=== PATIENT | male | born 1945 | race Caucasian/White ===

== ENCOUNTER 2018-09-05 14:35 | Inpatient (IN) ==
--- NOTE | 2018-09-05 14:51 | Emergency Department Note ---
Disposition Clinical Impression: TIA resulting from procedure Disposition: Still a Patient General Adult HPI - General Stated complaint: possible stroke Time Seen by Provider: 09/05/18 14:43 - Related Data Home Medications Medication Instructions Recorded Confirmed Atorvastatin Calcium [Lipitor] 20 mg PO DAILY 09/05/18 09/05/18 Diclofenac Sodium (24 HR) 100 mg PO DAILY 09/05/18 09/05/18 [Voltaren XR] Famotidine [Heartburn Prevention] 20 mg PO DAILY 09/05/18 09/05/18 Metoprolol XL (24 HR) Succ [Toprol 25 mg PO DAILY 09/05/18 09/05/18 Xl] Nitroglycerin [Nitrostat] 0.4 mg SL DAILY PRN 09/05/18 09/05/18 Paroxetine [Paxil] 20 mg PO DAILY 09/05/18 09/05/18 Trazodone HCl 100 mg PO HS 09/05/18 09/05/18 Allergies Allergy/AdvReac Type Severity Reaction Status Date / Time No Known Allergies Allergy Verified 09/05/18 09:42 Past Medical History - Past Medical History Medical history: Reports: COPD, hypertension Surgical history: Reports: appendectomy Psychiatric history: Reports: anxiety, depression - Social History Smoking Status: Current every day smoker Alcohol use: Reports: none Drug use: Reports: none Attestation Statement - Attestation Attestation: I examined this patient and my medical decision-making was reviewed with the Resident Physician. I agree with the documented findings, disposition and treatment plan as described except to the extent set forth below. 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 He presents confused. They were concerend for a stroke and he was transported to us immeadiately which then elicited a stroke alert to be called. STROKE workup and then dispositoin but likely admission to medicine
--- NOTE | 2018-09-05 14:52 | Emergency Department Note ---
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 The patient states that he needed to use the restroom and when he got up he was noticeably week. The nurse states that at 1410 these events occurred where he had left facial lower droop, slurring of the speech with drooling and a noticeable left grasp weakness. No history of th is in the past. The interventional cardiologists later evaluated the patient and he had spontaneous resolution of his symptoms at 1423. He presents here in the emergency department with a slight left facial nasolabial flattening and droop with reports of slurred speech return. Review of his medications, no anticoagulants. The son is in the room states this is new. He does admit that he has had a vocal changes with the past several weeks but none of the slurring. No history of CVA. His current NIH score is 2. Onset of Symptoms Date: 09/05/18 Onset of Symptoms Time: 14:10 Symptom Onset Unknown: No Timing confirmed by: caregiver (Nurse) Location: speech, left face, left arm History of same: No - Related Data Home Medications: Home Medications Medication Instructions Recorded Confirmed Aspirin [Adult Aspirin] 81 mg PO DAILY 09/05/18 09/05/18 Atorvastatin Calcium [Lipitor] 20 mg PO DAILY 09/05/18 09/05/18 Diclofenac Sodium [Voltaren] 1 appl TP DAILY 09/05/18 09/05/18 Diclofenac Sodium [Voltaren] 50 mg PO Q8HR 09/05/18 09/05/18 Famotidine [Heartburn Prevention] 20 mg PO BID 09/05/18 09/05/18 Metoprolol XL (24 HR) Succ [Toprol 25 mg PO DAILY 09/05/18 09/05/18 Xl] Multivits,Ca,Min/Iron/FA/Lycop 1 tab PO DAILY 09/05/18 09/05/18 [Centrum Men's Tablet] Nitroglycerin [Nitrostat] 0.4 mg SL DAILY PRN 09/05/18 09/05/18 Paroxetine [Paxil] 20 mg PO DAILY 09/05/18 09/05/18 Trazodone HCl 100 mg PO HS 09/05/18 09/05/18 Allergies/Adverse Reactions: Allergies Allergy/AdvReac Type Severity Reaction Status Date / Time No Known Allergies Allergy Verified 09/05/18 09:42 All systems ED: reviewed and negative except as stated. Review of Systems: As Per HPI Constitutional: Reports: weakness. Denies: fever, chills Eyes: Denies: vision change ENT ED: Denies: congestion Cardiovascular: Denies: chest pain Respiratory: Denies: dyspnea Gastrointestinal: Denies: abdominal pain, nausea, vomiting Musculoskeletal: Denies: back pain, neck pain Neurological: Reports: weakness. Denies: headache, numbness, paresthesias Psychiatric: Reports: anxiety Past Medical History - Past Medical History Attestation: Yes The following information was validated with the patient. Source: patient Medical history: Reports: COPD, coronary artery disease, hypertension Surgical history: Reports: appendectomy Psychiatric history: Reports: anxiety, depression - Social History Smoking Status: Current every day smoker Alcohol use: Reports: occasionally Drug use: Reports: none Physical Exam - General Limitations: no limitations General appearance: alert, in no apparent distress, anxious - Head Head exam: atraumatic, normocephalic, normal inspection, other (Slight lower left facial droop) - Eye Eye exam: Present: normal appearance, PERRL, EOMI - ENT ENT exam: normal exam, normal oropharynx, mucous membranes moist - Expanded ENT Exam External ear exam: Present: normal external inspection Teeth exam: Present: other (EDENTULOUS) Throat exam: Present: normal inspection - Neck Neck exam: Present: normal inspection, full ROM, trachea midline. Absent: tenderness - Chest Chest inspection: Present: normal inspection, symmetric chest wall rise - Respiratory Respiratory exam: Present: normal lung sounds bilaterally - Cardiovascular Cardiovascular exam: Present: regular rate, normal rhythm, normal heart sounds - Abdominal Exam Abdominal exam: Present: soft, Non-Tender, normal bowel sounds. Absent: tenderness, distention, guarding, rebound, rigidity - Extremities Exam Extremities exam: Present: normal inspection, full ROM, normal capillary refill. Absent: tenderness, pedal edema - Back Exam Back exam: Present: normal inspection, full ROM. Absent: tenderness - Neurological Exam Neurological exam: Present: alert, oriented X3, CN II-XII intact - Expanded Neurological Exam Patient oriented to: Present: person, place, time Cranial nerves: EOM function (II, III, IV, ): Normal, facial sensation (V): Normal, facial palsy (VII): Abnormal Left (slight flattening), gag reflex (IX): Normal, spinal accessory function (XI): Normal, tongue deviation (XII): Normal Motor strength - LUE: 5/5 Motor strength - RUE: 5/5 Motor strength - LLE: 5/5 Motor strength - RLE: 5/5 Upper motor neuron exam: jai neglect: Absent bilaterally, pronator drift: Absent bilaterally Sensory exam upper extremity: light touch: Normal Sensory exam lower extremity: light touch: Normal Coma Scale Eye Opening: Spontaneous Coma Scale Motor Response: Obeys Commands Coma Scale Verbal Response: Oriented Coma Scale Total: 15 - Psychiatric Psychiatric exam: Present: normal affect, anxious - Skin Skin exam: Present: warm, dry, intact, normal color Course Course Narrative: Patient presents with facial droop slurred speech reported weakness that has now resolved. Stroke workup initiated - Reevaluation(s) Reevaluation #1: CT scan did not reveal intracranial hemorrhage. Reevaluation #2: Patient has become very agitated. Ativan and Benadryl ordered. The hospitalist is at bedside evaluate the patient. He is acting slightly more confused. There is no obvious focal deficits. - Consultations Consultation #1: Spoke with the [facility] tele-stroke neurologist Dr. Spann who agrees he likely had a small stroke but now has almost near resolution of his symptoms. Does not recommend tPA at this time. Spoke with the patient's family members and are agreeable to stay here at [facility] for further evaluation of possible TIA versus CVA. Time: 15:05 Consultation #2: Spoke with on-call hospitalist liss Easley to admit for TIA after procedure. No further orders at this time Time: 15:23 Vital Signs Temperature 97.7 F 09/05/18 14:42 Pulse Rate 73 09/05/18 14:42 Respiratory Rate 20 09/05/18 14:42 Blood Pressure 171/112 09/05/18 14:42 O2 Sat by Pulse Oximetry 98 09/05/18 14:42 Temperature 97.7 F 09/05/18 14:42 Pulse Rate 71 09/05/18 15:17 Respiratory Rate 17 09/05/18 15:32 Blood Pressure 199/111 09/05/18 15:32 O2 Sat by Pulse Oximetry 98 09/05/18 14:42 Oxygen Delivery Oxygen Delivery Room Air Neuro Symptoms/Deficit - MDM Narrative Medical decision making narrative: Patient was discussed with my attending physician who agrees with ED management and final disposition. They independently evaluated the patient. Please refer to their attestation to this encounter for additional information. This note was generated by [employer] voice recognition software and as a result grammatical or spelling errors may occur using this program. - Medical Records Medical records reviewed: Yes I reviewed the patient's medical records. - Lab Data Lab results reviewed: Yes I reviewed the patient's lab results. Result diagrams: 09/05/18 14:09 09/05/18 14:09 Lab Results 09/05/18 09/05/18 09/05/18 Range/Units 14:09 14:09 14:09 WBC 8.1 (4.3-11.1) K/mcL RBC 4.49 (4.19-5.50) M/mcL Hgb 14.3 (12.9-16.9) g/dL Hct 43.9 (37.5-50.1) % MCV 97.8 (83.0-100.0) fL MCH 31.8 (28.0-33.3) pg MCHC 32.6 (31.6-35.5) g/dL RDW 13.4 (11.5-14.5) % Plt Count 129 L (140-400) K/mcL MPV 12.8 H (9.4-12.4) fL PT 11.6 (9.4-12.1) Seconds INR 1.0 APTT 33.5 (26.0-36.0) Seconds Sodium 140 (136-145) mEq/L Potassium 3.8 (3.5-5.1) mEq/L Chloride 107 (98-107) mEq/L Carbon Dioxide 24 (23-29) mEq/L BUN 23 (8-23) mg/dL Creatinine 0.99 (0.70-1.30) mg/dL Est GFR ( Amer) > 60 (> 60) Est GFR (Non-Af Amer) > 60 (> 60) BUN/Creatinine Ratio 23 (6-26) Glucose 178 H (70-105) mg/dL Calculated Osmolality 298 (280-300) Calcium 9.4 (8.6-10.3) mg/dL Troponin I < 0.03 (< 0.04) ng/mL Urine Color (Yellow) Urine Clarity (Clear) Urine pH (5.0-8.0) pH Units Ur Specific [place] (1.010-1.025) Urine Protein (Neg-Trace) mg/dL Urine Glucose (UA) (Normal) mg/dL Urine Ketones (Negative) mg/dL Urine Blood (Negative) Urine Nitrite (Negative) Urine Bilirubin (Negative) Urine Urobilinogen (Normal) mg/dL Ur Leukocyte Esterase (Negative) Ur Culture Indicated? (NO) Urine Opiates Screen (Xyetni=894) ng/mL Ur Barbiturates Screen (Uibnfe=926) ng/mL Ur Phencyclidine Scrn (Cutoff=25) ng/mL Ur Amphetamines Screen (Eayqxp=3743) ng/mL U Benzodiazepines Scrn (Nppcrr=465) ng/mL Urine Cocaine Screen (Cutoff= 300) ng/mL U Marijuana (THC) Screen (Cutoff = 50) ng/mL Ur Drug Screen Interp 09/05/18 09/05/18 Range/Units 15:54 15:54 WBC (4.3-11.1) K/mcL RBC (4.19-5.50) M/mcL Hgb (12.9-16.9) g/dL Hct (37.5-50.1) % MCV (83.0-100.0) fL MCH (28.0-33.3) pg MCHC (31.6-35.5) g/dL RDW (11.5-14.5) % Plt Count (140-400) K/mcL MPV (9.4-12.4) fL PT (9.4-12.1) Seconds INR APTT (26.0-36.0) Seconds Sodium (136-145) mEq/L Potassium (3.5-5.1) mEq/L Chloride (98-107) mEq/L Carbon Dioxide (23-29) mEq/L BUN (8-23) mg/dL Creatinine (0.70-1.30) mg/dL Est GFR ( Amer) (> 60) Est GFR (Non-Af Amer) (> 60) BUN/Creatinine Ratio (6-26) Glucose (70-105) mg/dL Calculated Osmolality (280-300) Calcium (8.6-10.3) mg/dL Troponin I (< 0.04) ng/mL Urine Color Yellow (Yellow) Urine Clarity Clear (Clear) Urine pH 7.0 (5.0-8.0) pH Units Ur Specific [place] 1.008 L (1.010-1.025) Urine Protein Negative (Neg-Trace) mg/dL Urine Glucose (UA) 100 H (Normal) mg/dL Urine Ketones Negative (Negative) mg/dL Urine Blood Negative (Negative) Urine Nitrite Negative (Negative) Urine Bilirubin Negative (Negative) Urine Urobilinogen Normal (Normal) mg/dL Ur Leukocyte Esterase Negative (Negative) Ur Culture Indicated? NO (NO) Urine Opiates Screen Negative (Sslqqn=732) ng/mL Ur Barbiturates Screen Negative (Siwpsh=815) ng/mL Ur Phencyclidine Scrn Negative (Cutoff=25) ng/mL Ur Amphetamines Screen Negative (Pqfyco=9100) ng/mL U Benzodiazepines Scrn Positive H (Olhnfc=234) ng/mL Urine Cocaine Screen Negative (Cutoff= 300) ng/mL U Marijuana (THC) Screen Negative (Cutoff = 50) ng/mL Ur Drug Screen Interp See Below - Radiology Data Radiology results reviewed: Yes I reviewed the patient's radiology results. Head CT 09/05/18 14:43 IMPRESSION: No acute intracranial abnormality. Slight to mild cerebral atrophy appropriate for age. [id number] amount of chronic ischemic change also age-appropriate. D/ / Femi Lorenz MD / Femi Lorenz MD Interpreting Provider: Femi Lorenz MD Stroke Scale - Level of Consciousness LOC: Alert - LOC Questions LOC Questions: Answers both correctly - LOC Commands LOC Commands: Performs both correctly - Best Gaze Best Gaze: Normal - Visual Visual: No visual loss - Facial Palsy Facial Palsy: Minor asymmetry on smiling, flattened nasolabial fold - Motor Arms Motor Arm-Left: No drift for 10 seconds Motor Arm-Right: No drift for 10 seconds - Motor Legs Motor Leg-Left: No drift for 5 seconds Motor Leg-Right: No drift for 5 seconds - Limb Ataxia Limb Ataxia: Absent of affected limb too weak to perform exam - Sensory Sensory: Normal - Best Language Best Language: No aphasia - Dysarthria Dysarthria: Mild, slurs some words - Extinction and Inattention Extinction and Inattention: Normal - NIHSS Total Score NIHSS Total Score: 2 TPA Checklist - Eligibilty for IV tPA 1. LKW equal to or less than 4.5 hours be before treatment: Yes 2. Clinical diagnosis of ischemic stroke causing deficit: Yes 3. Age 18 years or older: Yes - Contraindications 4. Evidence of intracranial hemorrhage on pretreatment CT: No 5. Presentation suggests subarachnoid hem, even if CT normal: No 6. CT shows multilobar infarction: No 7. Known neoplasm, arteriovenous malformation, or aneurysm: No 8. Significant head trauma (w/ LOC) or CVA in last 3 months: No 9. BP elevated (systolic > 185 or diastolic > 110): No 10. Abnormal Blood Glucose (<50 or >400mg/dl): No 11. Active internal bleeding [PM.TPA15]: No 12. Known bleeding risk (including; not limited to 13-15): No 13. Heparin/argatroban/bivalirudin w/in 48hrs & PTT > normal: No 14. Platelet count less than 100,000/MM3: No 15. Current or recent use of anticoagualants (see protocol): No - Warnings/Precautions Considerations 16. Prior ischemic stroke within last 3 months: No 17. Recent history of intracranial hemorrhage: No 18. : No 19. Current/recent use Effient (7 days) or Brilinta (5 days): No 20. Arterial puncture at non compressible site or LP >7days: No 21. Major surgery or serious trauma in last 14 days: No 22. GI or urinary tract hemorrhage in last 21 days: No 23. NH involving left anterior myocardium in last 3 months: No 24. Suspected or known infective endocarditis/pericarditis: No - LKW: 3-4.5 hrs Add. Warnings/Precautions 21. oral anticoag other than warfarin regardles of last dose: No Patient/family understanding: The patient/family members have been counseled and understood the risk, benefit, and alternatives of treatment.
[2018-09-05 15:21] LABS: Hematocrit 43.9 % (37.5-50.1); Hemoglobin 14.3 g/dL (12.9-16.9); Mean Corpuscular HGB Conc 32.6 g/dL (31.6-35.5); Mean Corpuscular Hemoglobin 31.8 pg (28.0-33.3); Mean Corpuscular Volume 97.8 fL (83.0-100.0); Mean Platelet Volume 12.8 fL (9.4-12.4); Platelet Count 129 K/mcL (140-400); Red Blood Count 4.49 M/mcL (4.19-5.50); Red Cell Distribution Width 13.4 % (11.5-14.5)
[2018-09-05 15:29] LABS: Prothrombin Time 11.6 Seconds (9.4-12.1)
[2018-09-05 15:32] LABS: Activated Partial Thrombo Time 33.5 Seconds (26.0-36.0)
[2018-09-05 15:40] LABS: Troponin I < 0.03 ng/mL (< 0.04)
[2018-09-05] MEDS ORDERED: Naloxone 0.4 MG/ML INJ IVP PRN (15:44)
[2018-09-05] MEDS ORDERED: *HR* LORazepam 2 MG/ML VIAL IVP ONE ×2 (15:47→15:51)
[2018-09-05] MEDS ORDERED: Aspirin 325 MG TABLET PO ONE (15:48)
[2018-09-05] MEDS ORDERED: *HR* LORazepam 2 MG/ML VIAL ONE (15:49)
--- NOTE | 2018-09-05 15:52 | Internal Med History&Physical ---
Date of Encounter: 09/05/18 Time of Encounter: 15:51 Internal Medicine - H&P: HPI Chief complaint: Neuro symptoms Admitted From: Home Plans for Post Hospital Care: Home History of present illness: Mr. 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 Patient is unable to provide any history and history is obtained from family members at the bedside She was said to have "for an outpatient heart catheter this morning, and immediate post catheter was said to have noted to have left facial droop, slurred speech with drooling and left upper extremity weakness. There was an apparent resolution after being evaluated by the plant operator/shift supervisor at 1423. At the time of evaluation in the ER the patient had similar symptoms. Family denies p rior history of same. 2. Patient's is a daily smoker, occasional drinker, no illicit drug use. At the time of presentation to the ER the patient was able to admit to the ER team that he had some vocal cord changes. No slurring of speech. Patient went to head CAT scan and after that became very combative requiring 2 doses of Ativan and became even more combative requiring Haldol, Geodone and 4 point restraint. Workup at this time was unremarkable. family reports patient sometimes have "forgetfulness and early dementia"., they also reported "anger issues, but he was never physical". Current agitation said to have started when he requested to be discharged home At my time of review, he has no facial droop and he is moving all his extremities spontaneously. However, he is unable to follow commands and is very confused His blood pressure also noted to be 207/119, said to have been elevated immediate post-cath and continues to worsen We will assume full code status and place on observation for TIA, HTN urgency and delirium at this time. Past Med Surg Social Fam HX - Past Medical History Medical history: COPD, coronary artery disease, hypertension Additional medical history: joint disorder. rotator cuff tear. Tobacco abuse Psychiatric history: anxiety, depression - Past Surgical History Surgical History: appendectomy Additional surgical history: Heart Cath - Social History Smoking Status: Current every day smoker Alcohol use: occasionally Drug use: none Internal Medicine - H&P: Meds Aspirin [Adult Aspirin] 81 mg PO DAILY 09/05/18 [History] Atorvastatin Calcium [Lipitor] 20 mg PO DAILY 09/05/18 [History] Diclofenac Sodium [Voltaren] 1 appl TP DAILY 09/05/18 [History] Diclofenac Sodium [Voltaren] 50 mg PO Q8HR 09/05/18 [History] Famotidine [Heartburn Prevention] 20 mg PO BID 09/05/18 [History] Metoprolol XL (24 HR) Succ [Toprol Xl] 25 mg PO DAILY 09/05/18 [History] Multivits,Ca,Min/Iron/FA/Lycop [Centrum Men's Tablet] 1 tab PO DAILY 09/05/18 [History] Nitroglycerin [Nitrostat] 0.4 mg SL DAILY PRN 09/05/18 [History] Paroxetine [Paxil] 20 mg PO DAILY 09/05/18 [History] Trazodone HCl 100 mg PO HS 09/05/18 [History] Allergy/AdvReac Type Severity Reaction Status Date / Time No Known Allergies Allergy Verified 09/05/18 09:42 ROS unobtainable: due to mental status All Systems PM: A 10-system review of systems was performed and is negative for pertinent findin gs except as documented above in the HPI. - Constitutional Vitals: Temp Pulse Resp BP Pulse Ox 97.7 F 71 17 199/111 98 09/05/18 14:42 09/05/18 15:17 09/05/18 15:32 09/05/18 15:32 09/05/18 14:42 Exam: VSS Gen: Extremely agitated and combative PEREZ: moist oral mucosa, not cynaotic, not clinically pale, pupils 2mm, reactive and equal Neck: Normal inspection Chest: No chest wall tenderness, equal chest movement bilaterally Resp: CTAB, no added sounds Heart: S1, S2 RRR, no m/g/r Abdomen: soft, non-tender Extremities: No pedal edema Neuro: Alert, awake, disoriented, not following commands, thrashing in bed Skin: no rash Psych: Extreme agitation Internal Med - H&P Results - Labs CBC & Chem 7: 09/05/18 14:09 09/05/18 14:09 Labs: Short CBC 09/05/18 Range/Units 14:09 WBC 8.1 (4.3-11.1) K/mcL Hgb 14.3 (12.9-16.9) g/dL Hct 43.9 (37.5-50.1) % Plt Count 129 L (140-400) K/mcL Cardiac Enzymes 09/05/18 Range/Units 14:09 Troponin I < 0.03 (< 0.04) ng/mL - Impressions ITS Impressions Head CT 09/05/18 14:43 IMPRESSION: No acute intracranial abnormality. Slight to mild cerebral atrophy appropriate for age. [id number] amount of chronic ischemic change also age-appropriate. D/ / Femi Lorenz MD / Femi Lorenz MD Interpreting Provider: Femi Lorenz MD - Assessment and plan (1) TIA (transient ischemic attack) Current Visit: Yes Status: Acute Assessment and plan: Suspected Patient with witnessed Left facial droop. slurred speech and L arm weakness immediate post-cath said to have resolved prior to presentation in ER at 1423 However, recurred on presentation Apart from confusion and being combative, he has no focal deficits at my time of review ASA po, lipitor po, lipid panel a.m and A1c a.m brain MRI requested, as well as ECHO and carotid USS neurology eval continue neurochecks (2) HLD (hyperlipidemia) Current Visit: Yes Status: Chronic Assessment and plan: continue lipitor Qualifiers: Hyperlipidemia type: unspecified Qualified Code(s): E78.5 - Hyperlipidemia, unspecified (3) Tobacco abuse Current Visit: Yes Status: Chronic Assessment and plan: NRT prn (4) Status post left heart catheterization Current Visit: Yes Status: Acute Assessment and plan: [facility] report noted, no indication for cardiology eval at this time (5) Delirium Current Visit: Yes Status: Acute Assessment and plan: Patient is very combative and fighting and kicking staff in the ER At my time of review, he had received ativan and benadryl His blood pressure was very elevated and he was completely confused and not following command According to ER staff, he had been very pleasant after his head CT and communicating with staff Patient eventually required 4 point restraints According to the RN, he seemed to have been worse after receiving Ativan Recommended more antipsychotic-ER gave Geodeon Per family, he is very temperamental but not physical especially when he gets mad-he is on paroxetine and she reports complaince Utox is unremarkable -BDZP(given in ER), UA is unremarkable, alcohol level negative Rpt head imaging pending (6) Hypertensive urgency Current Visit: Yes Status: Acute Assessment and plan: Patient is on toprol at home, will resume, allowing for permissive HTN at this time IV labetalol prn SBP >180, DBP >100 Will consider hydralazine prn Continue to monitor - Time Spent With Patient Total time spent is greater than 50% in coordination of care (as documented) at patient's floor/unit and/or counseling patient:
[2018-09-05 16:05] LABS: Bilirubin,Urine Negative (Negative); Blood,Urine Negative (Negative); Clarity,Urine Clear (Clear); Color,Urine Yellow (Yellow); Glucose,Urine (UA) 100 mg/dL (Normal); Ketones,Urine Negative (Negative); Leukocyte Esterase,Urine Negative (Negative); Nitrite,Urine Negative (Negative); Protein,Urine Negative (Neg-Trace); Specific Gravity,Urine 1.008 (1.010-1.025); Urobilinogen,Urine Normal (Normal)
[2018-09-05] MEDS ORDERED: Haloperidol Lactate 5 MG/ML VIAL IVP ONE (16:05)
[2018-09-05] MEDS ORDERED: *HR* Labetalol 20 MG/4 ML SYRINGE IVP ONE (16:06)
[2018-09-05] MEDS ORDERED: Haloperidol Lactate 5 MG/ML VIAL ONE (16:09)
[2018-09-05 16:29] LABS: BUN/Creatinine Ratio 23 (6-26); Blood Urea Nitrogen 23 mg/dL (8-23); Calcium 9.4 mg/dL (8.6-10.3); Carbon Dioxide 24 mEq/L (23-29); Chloride 107 mEq/L (98-107); Glucose 178 mg/dL (70-105); Osmolality,Calculated 298 (280-300); Potassium 3.8 mEq/L (3.5-5.1); Sodium 140 mEq/L (136-145); eGFR For Non-African Americans > 60 (> 60)
[2018-09-05] MEDS ORDERED: Ziprasidone injection 20 MG/ML VIAL IM ONE ×2 (16:35)
[2018-09-05 16:40] LABS: Amphetamine Screen,Urine Negative ng/mL (Cutoff=1000); Barbiturate Screen,Urine Negative ng/mL (Cutoff=200); Benzodiazepines Screen,Urine Positive ng/mL (Cutoff=200); Cannabinoid Screen,Urine Negative ng/mL (Cutoff = 50); Cocaine Screen,Urine Negative ng/mL (Cutoff= 300); Opiate Screen,Urine Negative ng/mL (Cutoff=300); Phencyclidine Screen,Urine Negative ng/mL (Cutoff=25)
[2018-09-05] MEDS ORDERED: *HR* Labetalol 20 MG/4 ML SYRINGE IVP PRN (16:58)
[2018-09-05 17:44] LABS: Ethanol < 10 mg/dL (Less than 10)
[2018-09-05] MEDS ORDERED: *HR* Midazolam HCl 2 MG/2 ML VIAL IVP ONE (17:54)
[2018-09-05] MEDS ORDERED: Dexmedetomidine HCl 400 MCG/100 ML MLS IVC ONE (19:25)
[2018-09-05] MEDS ORDERED: Thiamine (B-1) 100 MG, Folic Acid 1 MG, MVI, adult with vitamin K 10 ML in 0.9 % Sodi... IVPB SCH (19:30)
[2018-09-05] MEDS: Dexmedetomidine HCl 400 MCG/100 ML MLS IVC SCH (19:41)
--- NOTE | 2018-09-05 21:21 | Event Note ---
Date of Encounter: 09/06/18 Time of Encounter: 21:00 Patient requiring additional sedation due to continued combative behavior, and pulling at lines. Precedex ordered as well as restraints. Patient currently having echocardiogram done, additional sedation with Versed drip ordered to be used if required. Patient also had elevated blood pressures, with diastolic above 130. Nitro drip started to help slowly bring these pressures down. We will monitor closely. Ordered stat chest x-ray and ABG to evaluate worsening breath sounds and increased oxygen demand. ABG within normal limits, chest x-ray showed no lobar pneumonia or pulmonary acute congestive heart failure. Patient's O2 saturations maintaining with oxymask. Continuing to monitor.
[2018-09-05] MEDS: Nitroglycerin 25 MG/250 ML INFUS..BTL IVC SCH (23:08)
[2018-09-06] MEDS: Dexmedetomidine HCl 400 MCG/100 ML MLS IVC SCH (00:33)
[2018-09-06 01:24] LABS: ABG Base Excess 1 mEq/L (-2 to 3); ABG HCO3 28 mEq/L (21-27); ABG Oxygen Saturation 98 % (95-98); ABG PCO2 57 mmHg (35-45); ABG PO2 108 mmHg (85-104); ABG TCO2 30 mEq/L (20-26)
[2018-09-06 03:44] LABS: Hematocrit 44.5 % (37.5-50.1); Hemoglobin 14.6 g/dL (12.9-16.9); Mean Corpuscular HGB Conc 32.8 g/dL (31.6-35.5); Mean Corpuscular Hemoglobin 32.1 pg (28.0-33.3); Mean Corpuscular Volume 97.8 fL (83.0-100.0); Mean Platelet Volume 13.1 fL (9.4-12.4); Platelet Count 113 K/mcL (140-400); Red Blood Count 4.55 M/mcL (4.19-5.50); Red Cell Distribution Width 13.1 % (11.5-14.5)
[2018-09-06 04:05] LABS: BUN/Creatinine Ratio 16 (6-26); Blood Urea Nitrogen 16 mg/dL (8-23); Calcium 9.5 mg/dL (8.6-10.3); Carbon Dioxide 28 mEq/L (23-29); Chloride 109 mEq/L (98-107); Chol/HDL Ratio 2.9 (0-4.9); Cholesterol 143 mg/dL (< 200); Glucose 108 mg/dL (70-105); HDL Cholesterol 49 mg/dL (40-59); LDL Cholesterol,Calculated 81 mg/dL (0-99); Osmolality,Calculated 300 (280-300); Potassium 4.5 mEq/L (3.5-5.1); Sodium 144 mEq/L (136-145); Triglycerides 64 mg/dL (< 150); eGFR For Non-African Americans > 60 (> 60)
[2018-09-06] MEDS ORDERED: Metoprolol XL (24 HR) Succ 25 MG TAB.ER.24H PO SCH (09:00)
[2018-09-06] MEDS: Aspirin 81 MG TAB.CHEW PO SCH (09:06)
[2018-09-06 09:23] LABS: Estimated Average Glucose 111 mg/dl; Hemoglobin A1C 5.5 %
[2018-09-06] MEDS ORDERED: Ipratropium/Albuterol Neb 3 ML IH PRN (10:38)
[2018-09-06] MEDS: GuaiFENesin Liq 200 MG/10 ML UDC PO SCH ×3 (11:17→23:45)
--- NOTE | 2018-09-06 13:43 | Neurology - Consult Note ---
Addendum entered and electronically signed by Vijay Reynoso MD 09/06/18 17:07: Patient seen and examined, in the presence of Dr. Nick Robert and i agree with history taking, physical examination, assessment and plan. [facility] 73 [facility] man who developed transient confusion, facial droop and left sided weakness 45 minutes after cardiac cath procedure, lasting only few minutes in duration, followed by agitation and combativeness, totally resolved, Negative MRI of brain of acute infarct. Nonfocal neurological examination at present time. Will recommend carotid artery duplex study. Continue medical and supportive care. WIll sign off and will re-evaluate patient at your request. Original Note: Date of Encounter: 09/06/18 Time of Encounter: 13:42 Assessment and Plan (1) TIA (transient ischemic attack) Current Visit: Yes Status: Acute - Patient presented with left-sided facial droop, slurred speech, left arm weakness after cardiac catheterization - Patients symptoms had resolved prior to presentation to the ER - Symptoms recurred; patient became confused and combative, required sedation and restraints - Per event note on 09/05: Patient has been requiring additional sedation due to combative behavior including pulling at lines. Precedex was ordered. - MRI was performed on 09/05, and it demonstrated severely motion degraded study with no infarct identified - Echocardiogram demonstrated: Ejection fraction 65-70%, mild concentric LVH, indeterminant diastolic dysfunction, mild tricuspid regurgitation Plan: - Continue ASA, Lipitor - Continue sedation - Continue neurochecks - Will order carotid doppler U/S History of Present Illness HPI: Ottoniel Garcia is a 73 year old male with a PMH of tobacco use, hypertension who presented to the ICU from the catheter lab with neurologic symptoms post catheterization. Patient had reported that he needed to use the restroom, and that when he got up, he was noticeably weak. Patient then was noticed to have left-sided facial droop, slurred speech with drooling, and left grasp weakness. There was resolution after being evaluated by the field crop farming supervisor. In the ER, patient had similar symptoms. Patient went for a head CT, and became very combative. Patient required 2 doses of Ativan, Haldol, Geodon, and 4 point res traints. Family member reported a history of forgetfulness and early dementia. Upon arrival to the ED, vital signs were significant for an elevated blood pressure at 171/112. MRI was performed on 09/05, and it demonstrated severely motion degraded study with no infarct identified. Per event note on 09/05: Patient has been requiring additional sedation due to combative behavior including pulling at lines. Patient was seen and examined at bedside this afternoon; patient is alert and oriented 3, and says that he is feeling much better. He states that he no longer feels any weakness on the left side of his body. He no longer has any slurred speech or facial droop. He currently denies having headache, numbness, paresthesias, tingling, weakness, confusion, agitation, or visual disturbances. He has no complaints at this time. Past Med Surg Social Fam HX - Past Medical History Medical history: COPD, coronary artery disease, hypertension Additional medical history: joint disorder. rotator cuff tear. Tobacco abuse Psychiatric history: anxiety, depression - Past Surgical History Surgical History: appendectomy Additional surgical history: Heart Cath - Social History Smoking Status: Current every day smoker Alcohol use: occasionally Drug use: none Medications and Allergies Aspirin [Adult Aspirin] 81 mg PO DAILY 09/05/18 [History] Atorvastatin Calcium [Lipitor] 20 mg PO DAILY 09/05/18 [History] Diclofenac Sodium [Voltaren] 1 appl TP DAILY 09/05/18 [History] Diclofenac Sodium [Voltaren] 50 mg PO Q8HR 09/05/18 [History] Famotidine [Heartburn Prevention] 20 mg PO BID 09/05/18 [History] Metoprolol XL (24 HR) Succ [Toprol Xl] 25 mg PO DAILY 09/05/18 [History] Multivits,Ca,Min/Iron/FA/Lycop [Centrum Men's Tablet] 1 tab PO DAILY 09/05/18 [History] Nitroglycerin [Nitrostat] 0.4 mg SL DAILY PRN 09/05/18 [History] Paroxetine [Paxil] 20 mg PO DAILY 09/05/18 [History] Trazodone HCl 100 mg PO HS 09/05/18 [History] Allergy/AdvReac Type Severity Reaction Status Date / Time No Known Allergies Allergy Verified 09/05/18 09:42 All Systems: The remainder of the systems were reviewed and are negative - Constitutional Constitutional ROS IM: as per HPI, no fever(s), no lethargy, no weakness - Musculoskeletal Musculoskeletal ROS IM: as per HPI, no muscle weakness, no myalgias, no numbness, no tingling - Neurological Neurological ROS: as per HPI, no abnormal gait, no dizziness, no focal weakness, no loss of vision, no numbness, no sensory deficit, no syncope, no tingling, no tremor(s), no weakness Physical Examination - Vital Signs Vital Signs: Initial Vital Signs Temp Pulse Resp BP Pulse Ox 97.7 F 73 20 171/112 98 09/05/18 14:42 09/05/18 14:42 09/05/18 14:42 09/05/18 14:42 09/05/18 14:42 - Constitutional General appearance: comfortable - Neurologic Sensorimotor examination: intact Detailed motor examination: grossly full strength in all extremities Motor examination - right side: 5/5: deltoids, biceps, triceps, wrist flexion, wrist extension, ingredient handler, toe extension (EHL), plantarflexion Motor examination - left side: 5/5: deltoids, biceps, triceps, wrist flexion, wrist extension, ingredient handler, toe extension (EHL), plantarflexion Detailed sensory examination: intact, light touch Reflex and gait examination: intact Reflexes: Brachioradialis: 2+, Patella: 2+ Mental Status Examination: awake, alert, oriented to person, oriented to place, oriented to time, follows commands appropriately, answers questions appropriately Cranial nerve examination: PERRL, EOMI, visual lindquist intact Results - Laboratory Findings CBC and BMP: 09/06/18 03:12 09/06/18 03:12 Abnormal lab findings: Abnormal lab results Plt Count 113 K/mcL (140-400) L 09/06/18 03:12 MPV 13.1 fL (9.4-12.4) H 09/06/18 03:12 ABG pH 7.30 pH Units (7.32-7.45) L 09/06/18 01:20 ABG pCO2 57 mmHg (35-45) H 09/06/18 01:20 ABG pO2 108 mmHg (85-104) H 09/06/18 01:20 ABG HCO3 28 mEq/L (21-27) H 09/06/18 01:20 ABG Total CO2 30 mEq/L (20-26) H 09/06/18 01:20 Chloride 109 mEq/L (98-107) H 09/06/18 03:12 Glucose 108 mg/dL (70-105) H 09/06/18 03:12 POC Glucose 112 mg/dL (70-99) H 09/05/18 23:18 Ur Specific [place] 1.008 (1.010-1.025) L 09/05/18 15:54 Urine Glucose (UA) 100 mg/dL (Normal) H 09/05/18 15:54 U Benzodiazepines Scrn Positive ng/mL ([id number]) H 09/05/18 15:54 Consult Discharge Plan - Plan Referrals: Candie Celestin, [employer] MANAGER [Primary Care Provider] -
[2018-09-06] MEDS: Ipratropium/Albuterol Neb 3 ML IH SCH ×2 (15:20→21:27)
--- NOTE | 2018-09-06 15:50 | Internal Med Progress Note ---
Hospitalist Progress Note - Encounter Date of Encounter: 09/06/18 Time of Encounter: 09:00 - Subjective Interval History: Patient feels fine. Mild cough, nonproductive. No fever. Vitals are stable. No neuro deficit identified or report this morning. - Exam Vitals: Temp Pulse Resp BP Pulse Ox 98.4 F 70 20 136/91 97 09/06/18 12:00 09/06/18 11:00 09/06/18 15:21 09/06/18 11:00 09/06/18 15:21 Exam: VSS Gen: AO 3, in no acute distress PEREZ: moist oral mucosa, not cynaotic, not clinically pale, pupils 2mm, reactive and equal Neck: Normal inspection Chest: No chest wall tenderness, equal chest movement bilaterally Resp: CTAB, scattered wheezes bilaterally Heart: S1, S2 RRR, no m/g/r Abdomen: soft, non-tender Extremities: No pedal edema Neuro: Alert, awake, oriented 3, no focal deficit Skin: no rash - Assessment and Plan (1) TIA (transient ischemic attack) Current Visit: Yes Status: Acute Assessment and Plan: Patient has slurred speech and facial drop, symptoms resolved completely now. MRI brain negative. Consider TIA - Continue cardiac monitoring to rule out occult A. fib - Echo unremarkable - Duplex carotid pending - Continue close monitor mental status and neuro status as patient has episode of confusion and and dentition last night. - Continue aspirin and Lipitor - Neurology consult appreciated, further recommendation will be followed (2) HLD (hyperlipidemia) Current Visit: Yes Status: Chronic Assessment and Plan: continue lipitor (3) Tobacco abuse Current Visit: Yes Status: Chronic Assessment and Plan: NRT prn (4) Status post left heart catheterization Current Visit: Yes Status: Acute Assessment and Plan: [facility] report noted, no indication for cardiology eval at this time. Patient denies chest pain. Continue aspirin, beta ray, and statin for CAD (5) Delirium Current Visit: Yes Status: Acute Assessment and Plan: Etiology undetermined. Patient is not a heavy drinker, he drink alcohol only socially. Less likely alcohol withdraw. - Continue closely monitor patient. MRI brain negative - Probably due to acute disease, expect improvement after underlying disease was treated. - Neurology consult appreciated, further recommendation will follow (6) Hypertensive urgency Current Visit: Yes Status: Acute Assessment and Plan: BP is stable now. Continue home medications (7) Acute bronchitis Current Visit: Yes Status: Acute Assessment and Plan: Chest x-ray suggested acute bronchitis, no signs of pneumonia - Place patient on cough syrup, and DuoNeb treatment - Respiratory viral panel - Supportive treatment with oxygen DVT Prophylaxis: Heparin subcutaneously - Time Spent with Patient Total time spent is greater than 50% in coordination of care (as documented) at patient's floor/unit and/or counseling patient: 25 - 35 minutes Plan of Care Discussed with: family Internal Medicine: Result - Labs CBC & Chem 7: 09/06/18 03:12 09/06/18 03:12 Labs: Short CBC 09/05/18 09/06/18 Range/Units 14:09 03:12 WBC 8.1 9.2 (4.3-11.1) K/mcL Hgb 14.3 14.6 (12.9-16.9) g/dL Hct 43.9 44.5 (37.5-50.1) % Plt Count 129 L 113 L (140-400) K/mcL BMP 09/05/18 09/06/18 14:09 03:12 Sodium 140 144 Potassium 3.8 4.5 Chloride 107 109 H Carbon Dioxide 24 28 BUN 23 16 Creatinine 0.99 0.98 Glucose 178 H 108 H Calcium 9.4 9.5 Cardiac Enzymes 09/05/18 Range/Units 14:09 Troponin I < 0.03 (< 0.04) ng/mL Urine 09/05/18 Range/Units 15:54 Urine Color Yellow (Yellow) Urine Clarity Clear (Clear) Urine pH 7.0 (5.0-8.0) pH Units Ur Specific [place] 1.008 L (1.010-1.025) Urine Protein Negative (Neg-Trace) mg/dL Urine Glucose (UA) 100 H (Normal) mg/dL - ABG Interpretation ABG results: ABG ABG pH 7.30 pH Units (7.32-7.45) L 09/06/18 01:20 ABG pCO2 57 mmHg (35-45) H 09/06/18 01:20 ABG pO2 108 mmHg (85-104) H 09/06/18 01:20 ABG O2 Saturation 98 % (95-98) 09/06/18 01:20 PT/INR, D-dimer PT 11.6 Seconds (9.4-12.1) 09/05/18 14:09 - Impressions Impressions Echocardiogram 09/05/18 15:47 Impressions: LVEF 65-70%. Normal LV chamber size and systolic function. Mild concentric left ventricular hypertrophy. Indeterminate diastolic function. Normal right ventricular structure and function. Mild tricuspid regurgitation. Unable to estimate RVSP due to lack of Doppler study and IVC visualization. Non-diagnostic of PFO with agitated saline contrast. Left Ventricular Wall Motion: Rest Echo Findings All wall segments showed normal motion. Findings: Study Quality * Technically sub-optimal due to clinical status and combative patient. ECG Findings * Normal sinus rhythm. Left Ventricle * LVEF 65-70%. * Normal LV chamber size and systolic function. * Mild concentric left ventricular hypertrophy. * Indeterminate diastolic function. No PW doppler study. Right Ventricle * Normal right ventricular structure and function. Left Atrium * Normal left atrial size. Right Atrium * Normal right atrial size. Interatrial Septum * Non-diagnostic of PFO with agitated saline contrast. Aortic Valve * Trileaflet aortic valve. * Normal aortic valve structure. No CW/PW doppler study. Mitral Valve * Normal mitral valve structure. * Trace mitral regurgitation. No CW/PW doppler study. Tricuspid Valve * Normal tricuspid valve structure. * Mild tricuspid regurgitation. * Unable to estimate RVSP due to lack of TR jet. No CW/PW doppler study. Pulmonic Valve * Pulmonic valve is not well visualized. * Trace pulmonic regurgitation. Aorta * Normally sized aortic root. Pericardium * The pericardium appears normal. IVC * The IVC is not well evaluated. Brain MRI 09/05/18 15:49 IMPRESSION: Severely motion degraded study. No infarct identified. D/ / Marlon Motta MD / Marlon Motta MD Interpreting Provider: Marlon Motta MD Chest X-Ray 09/06/18 01:07 IMPRESSION: 1. The significant lordotic projection accentuates the mediastinal and hilar structures. 2. Mild perihilar findings which could represent mild bronchitis or perihilar edema. There is no lobar pneumonia or acute congestive heart failure. D/ / 09/06/2018 07:22:00 Rojelio Valle MD / Bailey Chadwick Interpreting Provider: Rojelio Valle MD Consult Discharge Plan - Plan Referrals: Candie Celestin, RUBBER AND PLASTICS WORKER [Primary Care Provider] - (2) HLD (hyperlipidemia) Qualifiers: Hyperlipidemia type: unspecified Qualified Code(s): E78.5 - Hyperlipidemia, unspecified
[2018-09-06] MEDS: *HR* Heparin 5,000 UNIT/ML VIAL SQ SCH (16:45)
[2018-09-06] MEDS ORDERED: Acetaminophen 325 MG TABLET PO PRN (20:33)
[2018-09-06] MEDS ORDERED: traZODone 50 MG TABLET PO SCH (21:00)
[2018-09-06] MEDS: Nitroglycerin 25 MG/250 ML INFUS..BTL IVC SCH (22:32)
[2018-09-07] MEDS: Ipratropium/Albuterol Neb 3 ML IH SCH ×2 (03:51→09:53)
[2018-09-07 04:36] LABS: Basophils # 0.1 K/mcL (0.0-0.2); Basophils % 1.1 %; Eosinophils # 0.1 K/mcL (0.0-0.6); Eosinophils % 1.4 %; Hematocrit 40.5 % (37.5-50.1); Hemoglobin 13.6 g/dL (12.9-16.9); Immature Granulocytes % 0.3 % (0-4); Lymphocytes # 2.1 K/mcL (0.6-4.6); Lymphocytes % 26.8 %; Mean Corpuscular HGB Conc 33.6 g/dL (31.6-35.5); Mean Corpuscular Volume 95.3 fL (83.0-100.0); Mean Platelet Volume 13.2 fL (9.4-12.4); Monocytes # 0.8 K/mcL (0.0-1.3); Monocytes % 9.4 %; Neutrophils # 4.9 K/mcL (1.6-8.9); Platelet Count 117 K/mcL (140-400); Red Blood Count 4.25 M/mcL (4.19-5.50); Red Cell Distribution Width 13.1 % (11.5-14.5)
[2018-09-07 04:43] LABS: BUN/Creatinine Ratio 22 (6-26); Blood Urea Nitrogen 25 mg/dL (8-23); Calcium 9.2 mg/dL (8.6-10.3); Carbon Dioxide 26 mEq/L (23-29); Chloride 106 mEq/L (98-107); Glucose 82 mg/dL (70-105); Osmolality,Calculated 293 (280-300); Potassium 3.4 mEq/L (3.5-5.1); Sodium 140 mEq/L (136-145); eGFR For Non-African Americans > 60 (> 60)
[2018-09-07 05:22] VITALS: BP 144/65
[2018-09-07] MEDS: GuaiFENesin Liq 200 MG/10 ML UDC PO SCH ×2 (06:32→11:55)
[2018-09-07] MEDS: *HR* Heparin 5,000 UNIT/ML VIAL SQ SCH (06:32)
[2018-09-07] MEDS ORDERED: Metoprolol XL (24 HR) Succ 25 MG TAB.ER.24H PO SCH (09:00)
[2018-09-07] MEDS: Aspirin 81 MG TAB.CHEW PO SCH (09:12)
--- NOTE | 2018-09-07 10:07 | Discharge Summary ---
- NOTES TO OUTPATIENT PROVIDER Notes to Outpatient Provider: 1. F/U with PCP as outpatient. Orders not resulted at time of discharge: Pending orders 09/06/18 15:57 Respiratory Infection Panel [MOLMIC] Stat Date of Encounter: 09/07/18 Time of Encounter: 09:00 - Discharge Diagnosis (1) TIA (transient ischemic attack) Priority: Primary Status: Acute (2) HLD (hyperlipidemia) Priority: Secondary Status: Chronic Qualifiers: Hyperlipidemia type: unspecified Qualified Code(s): E78.5 - Hyperlipidemia, unspecified (3) Tobacco abuse Priority: Secondary Status: Chronic (4) Status post left heart catheterization Priority: Secondary Status: Acute (5) Delirium Priority: Primary Status: Acute (6) Hypertensive urgency Priority: Primary Status: Acute (7) Acute bronchitis Priority: Primary Status: Acute Qualifiers: Qualified Code(s): J20.9 - Acute bronchitis, unspecified (8) COPD (chronic obstructive pulmonary disease) Priority: Secondary Status: Acute Qualifiers: Qualified Code(s): J44.9 - Chronic obstructive pulmonary disease, unspecified Hospital course: Mr. Garcia is a 73 year old male presented to ER for facial drop and slurred s peech. Symptoms resolved quickly. MRI brain has been done, negative for infarct. Considered TIA. Patient has delirium and agitation on the first night of admission. He was placed on sedation and monitored in ICU. Patient has chest x-ray shows acute bronchitis. Patient's condition improved after treatment. Cardiac monitoring, echo, and duplex carotid unremarkable. Neurology consult saw patient, recommend continue aspirin and atorvastatin. Patient feels fine today, no overnight event, will discharge patient home. I saw and examined the patient. No difficulty breathing. Mild cough. Vitals are stable. Walk around in room without difficulty. On exam there is no wheezing any more. Will DC patient home. Patient has a history of COPD, will perform home oxygen qualification test prior to discharge. Discharge discussed with: patient - Time Spent with Patient Total time spent providing and/or coordinating discharge services: 25 minutes Less than 30 minutes - Discharge Medications Prescriptions: GuaiFENesin Liq [Robitussin Liq] 200 mg PO Q6HR 7 Days #200 ml Home Medications: Aspirin [Adult Aspirin] 81 mg PO DAILY 09/05/18 [History] Atorvastatin Calcium [Lipitor] 20 mg PO DAILY 09/05/18 [History] Diclofenac Sodium [Voltaren] 1 appl TP DAILY 09/05/18 [History] Diclofenac Sodium [Voltaren] 50 mg PO Q8HR 09/05/18 [History] Famotidine [Heartburn Prevention] 20 mg PO BID 09/05/18 [History] Metoprolol XL (24 HR) Succ [Toprol Xl] 25 mg PO DAILY 09/05/18 [History] Multivits,Ca,Min/Iron/FA/Lycop [Centrum Men's Tablet] 1 tab PO DAILY 09/05/18 [History] Nitroglycerin [Nitrostat] 0.4 mg SL DAILY PRN 09/05/18 [History] Paroxetine [Paxil] 20 mg PO DAILY 09/05/18 [History] Trazodone HCl 100 mg PO HS 09/05/18 [History] Albuterol Sulfate [Albuterol Inhaler] 1 puff IH Q4H PRN #1 bottle 09/07/18 [Rx] GuaiFENesin Liq [Robitussin Liq] 200 mg PO Q6HR 7 Days #200 ml 09/07/18 [Rx] Allergies/Adverse Reactions: Allergy/AdvReac Type Severity Reaction Status Date / Time No Known Allergies Allergy Verified 09/05/18 09:42 Date of admission: 09/06/18 13:03 Primary care physician: Candie Celestin CNP Consults: 09/05/18 19:22 Consult to [employer] [CONS] Routine Reason for SW Consult: Alcoholism 09/06/18 10:33 Consult to Neurology [CONS] Routine Consulting Provider: Neurology [facility] Reason for Consult: TIA vs CVA Call Completed: Yes Discharging clinician: Carmen Keita Anticipated date of discharge: 09/07/18 - Constitutional Vitals: Temp Pulse Resp BP Pulse Ox 97.8 F 71 18 144/65 92 09/07/18 07:46 09/07/18 04:00 09/07/18 09:53 09/07/18 04:00 09/07/18 09:53 Exam: Pt is AAO x 3, in NAD HEENT: NC/AT, PERRL Neck: Supple, no JVD, no LAD Lungs: CTA b/l Heart: S1S2, RRR Abd: Soft, nontender, BS present Ext: ROM wnl, no pedal edema Neuro: No focal deficit - Patient Status Disposition: Home, Self-Care Condition: Good Overall status at discharge: patient is back to baseline - Discharge Instructions Follow Up With: Candie Celestin CNP [Primary Care Provider] - Forms: ED Satisfaction Letter - Diet and Activity Activity: increase activity as tolerated Diet: low fat, low cholesterol, low salt diet
== END 2018-09-07 12:17 | disposition home or self-care (01) | DRG 69 ==
LOC: EMEROOARM 14:35 → 3BNU 14:35 → ICNU 18:08 → 2ANU 09-07 07:53
PROVIDERS: ADMIT Hospitalist; ATTEND Hospitalist

== ENCOUNTER 2019-08-15 21:53 | Inpatient (IN) ==
[2019-08-15 23:16] LABS: Bilirubin,Urine Negative (Negative); Blood,Urine Trace (Negative); Clarity,Urine Cloudy (Clear); Color,Urine Yellow (Yellow); Glucose,Urine (UA) Normal (Normal); Ketones,Urine Negative (Negative); Leukocyte Esterase,Urine Small (Negative); Nitrite,Urine Positive (Negative); PH,Urine 7.5 pH Units (5.0-8.0); Protein,Urine 30 mg/dL (Neg-Trace); Specific Gravity,Urine 1.018 (1.010-1.025); Urobilinogen,Urine Normal (Normal)
[2019-08-15 23:18] LABS: Bacteria,Urine Many per hpf (None-Few); Hyaline Casts,Urine Moderate per lpf (None-Few); RBC,Urine 0-3 per hpf (0-3); Squamous Epithelial Cell,Urine Moderate per lpf (None-Few); WBC,Urine TNTC per hpf (0-3)
[2019-08-15 23:29] LABS: Amphetamine Screen,Urine Negative ng/mL (Cutoff=1000); Barbiturate Screen,Urine Negative ng/mL (Cutoff=200); Benzodiazepines Screen,Urine Negative ng/mL (Cutoff=200); Cannabinoid Screen,Urine Positive ng/mL (Cutoff = 50); Cocaine Screen,Urine Negative ng/mL (Cutoff= 300); Opiate Screen,Urine Negative ng/mL (Cutoff=300); Phencyclidine Screen,Urine Negative ng/mL (Cutoff=25)
[2019-08-15 23:31] LABS: Hematocrit 30.9 % (37.5-50.1); Hemoglobin 10.5 g/dL (12.9-16.9); Immature Platelets 8.2 % (1.1-6.1); Mean Corpuscular Hemoglobin 33.5 pg (28.0-33.3); Mean Corpuscular Volume 98.7 fL (83.0-100.0); Mean Platelet Volume 11.7 fL (9.4-12.4); Red Blood Count 3.13 M/mcL (4.19-5.50); White Blood Count 18.8 K/mcL (4.3-11.1)
[2019-08-15] MEDS ORDERED: cefTRIAXone 1,000 MG in Water for inj. (sterile) 10 ML IVP ONE (23:37)
[2019-08-15] MEDS ORDERED: 0.9 % Sodium Chloride 1,000 ML IVC ONE (23:37)
[2019-08-15 23:40] LABS: INR 1.1; Prothrombin Time 12.8 Seconds (9.4-12.1)
[2019-08-15 23:43] LABS: Activated Partial Thrombo Time 27.7 Seconds (26.0-36.0)
[2019-08-15 23:54] LABS: Blood Urea Nitrogen 14 mg/dL (8-23); Calcium 8.8 mg/dL (8.6-10.3); Carbon Dioxide 25 mEq/L (23-29); Chloride 104 mEq/L (98-107); Glucose 93 mg/dL (70-105); Magnesium 1.7 mg/dL (1.6-2.6); Osmolality,Calculated 278 (280-300); Sodium 134 mEq/L (136-145)
[2019-08-15 23:59] LABS: BUN/Creatinine Ratio 16 (6-26); Troponin I 0.07 ng/mL (< 0.04); eGFR For African Americans > 60 (> 60); eGFR For Non-African Americans > 60 (> 60)
[2019-08-16] MEDS ORDERED: 0.9 % Sodium Chloride 1,000 ML IVC ONE (00:01)
[2019-08-16] MEDS ORDERED: 0.9 % Sodium Chloride 1,000 ML IVC SCH (00:30)
[2019-08-16] MEDS: levoFLOXacin 750 MG/150 ML 750 MG/150 ML BAG IVPB SCH ×2 (00:49→23:44)
[2019-08-16 01:39] LABS: Alanine Aminotransferase 26 Units/L (7-52); Albumin 3.1 g/dL (3.5-5.7); Albumin/Globulin Ratio 1.2 (1.1-2.2); Alkaline Phosphatase 110 Units/L (34-104); Aspartate Amino Transferase 17 Units/L (13-39); BUN/Creatinine Ratio 15 (6-26); Bilirubin,Total 0.4 mg/dL (0.3-1.0); Blood Urea Nitrogen 14 mg/dL (8-23); Calcium 8.3 mg/dL (8.6-10.3); Carbon Dioxide 23 mEq/L (23-29); Chloride 106 mEq/L (98-107); Chol/HDL Ratio 3.7 (0-4.9); Cholesterol 96 mg/dL (< 200); Globulin 2.5 g/dL (2.4-3.5); Glucose 91 mg/dL (70-105); HDL Cholesterol 26 mg/dL (40-59); LDL Cholesterol,Calculated 55 mg/dL (0-99); Osmolality,Calculated 280 (280-300); Sodium 135 mEq/L (136-145); Total Protein 5.6 g/dL (6.4-8.9); Triglycerides 75 mg/dL (< 150); Troponin I 0.05 ng/mL (< 0.04); eGFR For African Americans > 60 (> 60); eGFR For Non-African Americans > 60 (> 60)
[2019-08-16 01:48] LABS: INR 1.2; Prothrombin Time 13.4 Seconds (9.4-12.1)
[2019-08-16] MEDS ORDERED: Aspirin 325 MG TABLET PO ONE (01:49)
[2019-08-16] MEDS ORDERED: Ipratropium/Albuterol Neb 3 ML IH PRN (05:58)
[2019-08-16] MEDS ORDERED: Naloxone 0.4 MG/ML INJ IVP PRN (08:27)
[2019-08-16] MEDS ORDERED: Nitroglycerin 0.4 MG TAB.SUBL SL PRN (08:33)
[2019-08-16] MEDS: Aspirin Enteric Coated 81 MG Tablet PO SCH (09:48)
[2019-08-16] MEDS: Famotidine 20 MG TABLET PO SCH ×2 (09:48→21:40)
[2019-08-16] MEDS: Metoprolol XL (24 HR) Succ 25 MG TAB.ER.24H PO SCH ×2 (09:49→21:40)
[2019-08-16 11:07] LABS: % Iron Saturation 22 % (20-55); Iron 48 mcg/dL (65-175); Transferrin 154 mg/dL (203-362)
[2019-08-16 11:20] LABS: Immature Reticulocyte % 27.9 % (11.0-38.0); Retculocyte # 0.06 M/mcL (0.05-0.10); Reticulocyte % 1.8 % (1.6-2.8)
[2019-08-16 11:25] LABS: Ferritin 646 ng/mL (20-250)
[2019-08-16 11:30] LABS: Folate 10.8 ng/mL (3.0-16.0)
[2019-08-16 11:31] LABS: Vitamin B12 > 1500 pg/mL (250-1100)
[2019-08-16] MEDS ORDERED: Aspirin 81 MG TAB.CHEW PO STA ×2 (12:08→12:35)
[2019-08-16 12:20] LABS: Estimated Average Glucose 134 mg/dl
[2019-08-16 13:20] LABS: Triiodothyronine (T3) Free 2.63 pg/mL (2.50-3.90)
[2019-08-16] MEDS ORDERED: Isovue-370 500 ML BOTTLE IVP ONE (17:09)
[2019-08-16] MEDS ORDERED: traZODone 50 MG TABLET PO SCH (21:00)
[2019-08-16] MEDS ORDERED: Melatonin 3 MG TABLET PO SCH (21:00)
[2019-08-17 04:31] LABS: Hematocrit 30.2 % (37.5-50.1); Hemoglobin 10.3 g/dL (12.9-16.9); Mean Corpuscular HGB Conc 34.1 g/dL (31.6-35.5); Mean Corpuscular Hemoglobin 33.2 pg (28.0-33.3); Mean Corpuscular Volume 97.4 fL (83.0-100.0); Mean Platelet Volume 11.8 fL (9.4-12.4); Monocytes # 1.6 K/mcL (0.0-1.3); Platelet Count 256 K/mcL (140-400); Red Cell Distribution Width 12.2 % (11.5-14.5); White Blood Count 13.3 K/mcL (4.3-11.1)
[2019-08-17 04:35] LABS: INR 1.2; Prothrombin Time 13.9 Seconds (9.4-12.1)
[2019-08-17 04:48] LABS: Alanine Aminotransferase 21 Units/L (7-52); Albumin 2.9 g/dL (3.5-5.7); Albumin/Globulin Ratio 1.2 (1.1-2.2); Alkaline Phosphatase 108 Units/L (34-104); Aspartate Amino Transferase 17 Units/L (13-39); BUN/Creatinine Ratio 12 (6-26); Bilirubin,Total 0.3 mg/dL (0.3-1.0); Blood Urea Nitrogen 12 mg/dL (8-23); Calcium 8.3 mg/dL (8.6-10.3); Carbon Dioxide 25 mEq/L (23-29); Chloride 107 mEq/L (98-107); Chol/HDL Ratio 3.6 (0-4.9); Cholesterol 94 mg/dL (< 200); Globulin 2.4 g/dL (2.4-3.5); Glucose 84 mg/dL (70-105); HDL Cholesterol 26 mg/dL (40-59); LDL Cholesterol,Calculated 55 mg/dL (0-99); Magnesium 1.9 mg/dL (1.6-2.6); Osmolality,Calculated 285 (280-300); Phosphorous 3.6 mg/dL (2.7-4.5); Potassium 4.1 mEq/L (3.5-5.1); Sodium 138 mEq/L (136-145); Total Protein 5.3 g/dL (6.4-8.9); Triglycerides 66 mg/dL (< 150); eGFR For African Americans > 60 (> 60); eGFR For Non-African Americans > 60 (> 60)
[2019-08-17 05:36] LABS: Anisocytosis 1+ (Not Present); Lymphocytes # 1.1 K/mcL (0.6-4.6); Neutrophils # 10.6 K/mcL (1.6-8.9); Platelet Estimate Normal (Normal); Reactive Lymphocytes Present (Not Present)
[2019-08-17] MEDS ORDERED: cefTRIAXone 1,000 MG in Water for inj. (sterile) 10 ML IVP SCH (09:00)
[2019-08-17] MEDS: Famotidine 20 MG TABLET PO SCH (09:07)
[2019-08-17] MEDS: Metoprolol XL (24 HR) Succ 25 MG TAB.ER.24H PO SCH (09:07)
[2019-08-17] MEDS: Aspirin Enteric Coated 81 MG Tablet PO SCH (09:07)
[2019-08-17 11:46] VITALS: BP 174/93
== END 2019-08-17 16:55 | disposition left against medical advice (07) | DRG 65 ==
LOC: 3BNU 21:53 → EMEROOARM 21:53 → 3BNU 08-16 01:27 → SUATTDRO 08-16 17:56
PROVIDERS: ADMIT Internal Medicine; ATTEND Student in an Organized Health Care Education/Training Program

== ENCOUNTER 2019-09-16 13:51 | Inpatient (IN) ==
[2019-09-16] MEDS ORDERED: Isovue-370 500 ML BOTTLE IVP ONE (14:11)
[2019-09-16 14:34] LABS: INR 1.3; Prothrombin Time 14.9 Seconds (9.4-12.1)
[2019-09-16 14:37] LABS: Activated Partial Thrombo Time 22.7 Seconds (26.0-36.0)
[2019-09-16 14:38] LABS: Mean Corpuscular Volume 95.6 fL (83.0-100.0)
[2019-09-16 14:41] LABS: Hematocrit 28.2 % (37.5-50.1); Hemoglobin 9.7 g/dL (12.9-16.9); Immature Platelets 11.5 % (1.1-6.1); Mean Corpuscular HGB Conc 34.4 g/dL (31.6-35.5); Mean Corpuscular Hemoglobin 32.9 pg (28.0-33.3); Mean Platelet Volume 12.8 fL (9.4-12.4); Monocytes # 0.3 K/mcL (0.0-1.3); Nucleated Red Blood Cells 0.4 /100 WBC (0); Red Blood Count 2.95 M/mcL (4.19-5.50); Red Cell Distribution Width 13.4 % (11.5-14.5); White Blood Count 4.8 K/mcL (4.3-11.1)
[2019-09-16 15:01] LABS: Alanine Aminotransferase 27 Units/L (7-52); Albumin 3.4 g/dL (3.5-5.7); Albumin/Globulin Ratio 1.1 (1.1-2.2); Alkaline Phosphatase 109 Units/L (34-104); Aspartate Amino Transferase 32 Units/L (13-39); BUN/Creatinine Ratio 35 (6-26); Bilirubin,Direct 1.5 mg/dL (0.0-0.2); Bilirubin,Total 2.5 mg/dL (0.3-1.0); Blood Urea Nitrogen 39 mg/dL (8-23); Carbon Dioxide 23 mEq/L (23-29); Chloride 101 mEq/L (98-107); Glucose 134 mg/dL (70-105); Osmolality,Calculated 297 (280-300); Potassium 3.7 mEq/L (3.5-5.1); Sodium 138 mEq/L (136-145); Total Protein 6.4 g/dL (6.4-8.9); Troponin I 0.04 ng/mL (< 0.04); eGFR For African Americans > 60 (> 60); eGFR For Non-African Americans > 60 (> 60)
[2019-09-16 15:10] LABS: Platelet Count 38 K/mcL (140-400)
[2019-09-16 15:11] LABS: Lymphocytes # 0.3 K/mcL (0.6-4.6); Neutrophils # 4.2 K/mcL (1.6-8.9); Platelet Estimate Marked Decrease (Normal)
[2019-09-16 15:14] LABS: Bilirubin,Urine Moderate (Negative); Blood,Urine Negative (Negative); Clarity,Urine Clear (Clear); Glucose,Urine (UA) Normal (Normal); Ketones,Urine Trace mg/dL (Negative); Leukocyte Esterase,Urine Small (Negative); Nitrite,Urine Positive (Negative); PH,Urine 5.5 pH Units (5.0-8.0); Protein,Urine Trace mg/dL (Neg-Trace); Specific Gravity,Urine 1.028 (1.010-1.025)
[2019-09-16 15:17] LABS: Bacteria,Urine None Seen per hpf (None-Few); RBC,Urine 0-3 per hpf (0-3); Squamous Epithelial Cell,Urine Many per lpf (None-Few)
[2019-09-16 15:28] LABS: Color,Urine Dark-Yellow (Yellow)
[2019-09-16 15:30] LABS: Hyaline Casts,Urine Few per lpf (None-Few)
[2019-09-16] MEDS ORDERED: Cefepime HCl 2,000 MG in Water for inj. (sterile) 20 ML IVP ONE (15:33)
[2019-09-16] MEDS ORDERED: levoFLOXacin 750 MG/150 ML 750 MG/150 ML BAG IVPB ONE (15:38)
[2019-09-16] MEDS ORDERED: Naloxone 0.4 MG/ML INJ IVP PRN (18:11)
[2019-09-16] MEDS ORDERED: Ondansetron 4 MG/2 ML VIAL IVP PRN (18:11)
[2019-09-16] MEDS: dexAMETHasone 4 MG TABLET PO SCH (21:42)
[2019-09-16] MEDS: traZODone 50 MG TABLET PO SCH (21:42)
[2019-09-16] MEDS: Famotidine 20 MG TABLET PO SCH (21:42)
[2019-09-16] MEDS: BuPROPion SR (12 HR) 150 MG TABLET PO SCH (21:42)
[2019-09-16 22:35] LABS: Basophils % 0.2 %; Eosinophils % 0.2 %; Hemoglobin 8.7 g/dL (12.9-16.9); Immature Platelets 10.2 % (1.1-6.1); Lymphocytes % 6.3 %; Red Cell Distribution Width 13.6 % (11.5-14.5)
[2019-09-16 22:43] LABS: Hematocrit 25.7 % (37.5-50.1); Immature Granulocytes % 1.3 % (0-4); Lymphocytes # 0.3 K/mcL (0.6-4.6); Mean Corpuscular HGB Conc 33.9 g/dL (31.6-35.5); Mean Corpuscular Hemoglobin 33.5 pg (28.0-33.3); Mean Corpuscular Volume 98.8 fL (83.0-100.0); Mean Platelet Volume 11.8 fL (9.4-12.4); Monocytes # 0.3 K/mcL (0.0-1.3); Monocytes % 6.1 %; Platelet Count 40 K/mcL (140-400); Segmented Neutrophils % 85.9 %; White Blood Count 4.6 K/mcL (4.3-11.1)
[2019-09-16] MEDS: Piperacillin/Tazobactam 3.375 GM in 0.9 % Sodium Chloride Mini Bag 100 ML IVPB SCH (23:50)
[2019-09-17 02:02] LABS: Basophils % 0.2 %; Mean Corpuscular HGB Conc 34.4 g/dL (31.6-35.5)
[2019-09-17 02:04] LABS: Eosinophils % 0.2 %; Hematocrit 25.3 % (37.5-50.1); Hemoglobin 8.7 g/dL (12.9-16.9); Immature Granulocytes % 1.7 % (0-4); Immature Platelets 10.3 % (1.1-6.1); Lymphocytes # 0.1 K/mcL (0.6-4.6); Lymphocytes % 2.1 %; Mean Corpuscular Volume 98.8 fL (83.0-100.0); Mean Platelet Volume 13.6 fL (9.4-12.4); Monocytes # 0.3 K/mcL (0.0-1.3); Monocytes % 5.4 %; Neutrophils # 4.3 K/mcL (1.6-8.9); Red Blood Count 2.56 M/mcL (4.19-5.50); Red Cell Distribution Width 13.5 % (11.5-14.5); Segmented Neutrophils % 90.4 %; White Blood Count 4.8 K/mcL (4.3-11.1)
[2019-09-17 02:08] LABS: Platelet Count 38 K/mcL (140-400)
[2019-09-17 02:19] LABS: % Iron Saturation 52 % (20-55); Iron 71 mcg/dL (65-175); Transferrin 98 mg/dL (203-362)
[2019-09-17 02:24] LABS: Alanine Aminotransferase 30 Units/L (7-52); Alkaline Phosphatase 97 Units/L (34-104); Aspartate Amino Transferase 42 Units/L (13-39); BUN/Creatinine Ratio 39 (6-26); Bilirubin,Total 2.4 mg/dL (0.3-1.0); Blood Urea Nitrogen 36 mg/dL (8-23); Calcium 8.5 mg/dL (8.6-10.3); Carbon Dioxide 22 mEq/L (23-29); Chloride 104 mEq/L (98-107); Chol/HDL Ratio 4.9 (0-4.9); Cholesterol 68 mg/dL (< 200); Globulin 2.9 g/dL (2.4-3.5); Glucose 128 mg/dL (70-105); HDL Cholesterol 14 mg/dL (40-59); LDL Cholesterol,Calculated 41 mg/dL (0-99); Magnesium 2.3 mg/dL (1.6-2.6); Osmolality,Calculated 292 (280-300); Potassium 3.5 mEq/L (3.5-5.1); Sodium 136 mEq/L (136-145); Total Protein 5.9 g/dL (6.4-8.9); Triglycerides 65 mg/dL (< 150); Troponin I 0.11 ng/mL (< 0.04); eGFR For African Americans > 60 (> 60); eGFR For Non-African Americans > 60 (> 60)
[2019-09-17 02:48] LABS: Platelet Estimate Marked Decrease (Normal)
[2019-09-17 02:49] LABS: Poikilocytosis 1+ (Not Present); Polychromasia 1+ (Not Present); Toxic Granulation Present (Not Present)
[2019-09-17] MEDS ORDERED: *HR* Enoxaparin 40 MG/0.4 ML SYRINGE SQ SCH (06:00)
[2019-09-17] MEDS: PARoxetine 20 MG TABLET PO SCH (07:50)
[2019-09-17] MEDS: BuPROPion SR (12 HR) 150 MG TABLET PO SCH ×2 (07:51→20:54)
[2019-09-17] MEDS: Piperacillin/Tazobactam 3.375 GM in 0.9 % Sodium Chloride Mini Bag 100 ML IVPB SCH ×2 (07:52→17:26)
[2019-09-17] MEDS: Famotidine 20 MG TABLET PO SCH ×2 (07:52→20:54)
[2019-09-17] MEDS: *HR* LORazepam 0.5 MG TABLET PO PRN ×2 (07:52→20:54)
[2019-09-17 15:23] LABS: ABG Base Excess 0 mEq/L (-2 to 3); ABG HCO3 24 mEq/L (21-27); ABG Oxygen Saturation 94 % (95-98); ABG PCO2 33 mmHg (35-45); ABG PH 7.46 pH Units (7.32-7.45); ABG PO2 65 mmHg (85-104); ABG TCO2 25 mEq/L (20-26)
[2019-09-17] MEDS: traZODone 50 MG TABLET PO SCH (20:54)
[2019-09-17] MEDS: dexAMETHasone 4 MG TABLET PO SCH (20:54)
[2019-09-18] MEDS: Piperacillin/Tazobactam 3.375 GM in 0.9 % Sodium Chloride Mini Bag 100 ML IVPB SCH ×2 (02:48→09:06)
[2019-09-18] MEDS: Famotidine 20 MG TABLET PO SCH ×2 (09:12→20:29)
[2019-09-18] MEDS: BuPROPion SR (12 HR) 150 MG TABLET PO SCH ×2 (09:12→20:30)
[2019-09-18] MEDS: PARoxetine 20 MG TABLET PO SCH (09:12)
[2019-09-18 10:33] LABS: Basophils % 0.3 %; Hemoglobin 9.2 g/dL (12.9-16.9); Immature Granulocytes % 2.7 % (0-4); Mean Corpuscular Volume 95.3 fL (83.0-100.0); Monocytes % 7.7 %; Red Cell Distribution Width 13.8 % (11.5-14.5)
[2019-09-18 10:35] LABS: Hematocrit 26.6 % (37.5-50.1); Immature Platelets 8.8 % (1.1-6.1); Lymphocytes # 0.2 K/mcL (0.6-4.6); Lymphocytes % 6.1 %; Mean Corpuscular HGB Conc 34.6 g/dL (31.6-35.5); Mean Platelet Volume 12.7 fL (9.4-12.4); Monocytes # 0.3 K/mcL (0.0-1.3); Red Blood Count 2.79 M/mcL (4.19-5.50); Segmented Neutrophils % 83.2 %; White Blood Count 3.8 K/mcL (4.3-11.1)
[2019-09-18 10:37] LABS: Neutrophils # 3.2 K/mcL (1.6-8.9); Platelet Count 49 K/mcL (140-400)
[2019-09-18 10:55] LABS: BUN/Creatinine Ratio 36 (6-26); Blood Urea Nitrogen 33 mg/dL (8-23); Calcium 8.7 mg/dL (8.6-10.3); Carbon Dioxide 23 mEq/L (23-29); Chloride 107 mEq/L (98-107); Glucose 172 mg/dL (70-105); Osmolality,Calculated 299 (280-300); Potassium 3.6 mEq/L (3.5-5.1); Sodium 139 mEq/L (136-145); eGFR For African Americans > 60 (> 60); eGFR For Non-African Americans > 60 (> 60)
[2019-09-18 10:56] LABS: Albumin/Globulin Ratio 1.1 (1.1-2.2); Bilirubin,Direct 0.6 mg/dL (0.0-0.2); Bilirubin,Indirect 0.5 mg/dL (0.0-1.0); Bilirubin,Total 1.1 mg/dL (0.3-1.0); Globulin 2.7 g/dL (2.4-3.5); Total Protein 5.7 g/dL (6.4-8.9)
[2019-09-18 11:00] LABS: Anisocytosis 1+ (Not Present); Burr Cells 1+ (Not Present); Platelet Estimate Marked Decrease (Normal); Poikilocytosis 1+ (Not Present)
[2019-09-18] MEDS: dexAMETHasone 4 MG TABLET PO SCH (17:19)
[2019-09-18] MEDS: cefTRIAXone 2,000 MG in Water for inj. (sterile) 20 ML IVP SCH (17:32)
[2019-09-18] MEDS: traZODone 50 MG TABLET PO SCH (20:29)
[2019-09-19 02:30] LABS: BUN/Creatinine Ratio 33 (6-26); Blood Urea Nitrogen 30 mg/dL (8-23); Calcium 8.5 mg/dL (8.6-10.3); Carbon Dioxide 24 mEq/L (23-29); Chloride 106 mEq/L (98-107); Glucose 120 mg/dL (70-105); Osmolality,Calculated 299 (280-300); Potassium 3.9 mEq/L (3.5-5.1); Sodium 141 mEq/L (136-145); eGFR For African Americans > 60 (> 60); eGFR For Non-African Americans > 60 (> 60)
[2019-09-19] MEDS: BuPROPion SR (12 HR) 150 MG TABLET PO SCH ×2 (08:30→21:03)
[2019-09-19] MEDS: Famotidine 20 MG TABLET PO SCH ×2 (08:31→21:03)
[2019-09-19] MEDS: PARoxetine 20 MG TABLET PO SCH (08:31)
[2019-09-19] MEDS: cefTRIAXone 2,000 MG in Water for inj. (sterile) 20 ML IVP SCH (18:26)
[2019-09-19] MEDS: dexAMETHasone 4 MG TABLET PO SCH (18:27)
[2019-09-19] MEDS: traZODone 50 MG TABLET PO SCH (21:02)
[2019-09-20 07:24] VITALS: BP 121/84
[2019-09-20] MEDS: BuPROPion SR (12 HR) 150 MG TABLET PO SCH (09:42)
[2019-09-20] MEDS: PARoxetine 20 MG TABLET PO SCH (09:42)
[2019-09-20] MEDS: Famotidine 20 MG TABLET PO SCH (09:42)
== END 2019-09-20 13:49 | DRG 871 ==
LOC: EMEROOARM 13:51 → 3BNU 13:51 → SUATTDRO 09-17 15:45
PROVIDERS: ADMIT Student in an Organized Health Care Education/Training Program; ATTEND Internal Medicine